=== PATIENT | female | born 1960 | race Caucasian/White ===

== ENCOUNTER 2016-06-07 21:39 | Emergency (ER) | payer MEDICAID ==
[~2016-06-07] VITALS: Ht 160 cm; Wt 88.9 kg
[~2016-06-07 21:39] MED LIST: CEPH-570 PO; CITA20TA19 PO; HYDR25TA4 PO; OMEP20TA68 PO; OXYC-128 PO; ROPI1TAB2 PO
[2016-06-07] MEDS ORDERED: ONDANSETRON HCL/PF 4 MG/2 ML VIAL ONE (22:28)
[2016-06-07] MEDS ORDERED: MORPHINE SULFATE INJ 4 MG/ML DISP.SYRIN ONE (22:28)
[2016-06-07] MEDS ORDERED: IV SET PRIMARY 1 EA INFUS.SET MC ONE (22:28)
[2016-06-07] MEDS ORDERED: IV NS 0.9% 500 ML IV ONE (22:28)
[2016-06-07] MEDS ORDERED: IV NS 0.9% 500 ML BAG IV ONE (22:30)
[2016-06-07] MEDS ORDERED: ONDANSETRON HCL/PF 4 MG/2 ML VIAL IVP ONE (22:30)
[2016-06-07] MEDS ORDERED: MORPHINE SULFATE INJ 2 MG/ML DISP.SYRIN IV ONE (22:30)
[2016-06-07 22:48] LABS: BASOPHILS % (AUTO) 0.6 % (0.0-2.0); DIFF TOTAL % 100 %; EOSINOPHILS # (AUTO) 0.1 /CMM (0.0-0.7); EOSINOPHILS % (AUTO) 1.7 % (0.0-6.0); HEMATOCRIT 41 % (33-45); HEMOGLOBIN 13.5 g/dL (11.5-14.8); LYMPHOCYTES # (AUTO) 1.4 /CMM (0.8-4.8); LYMPHOCYTES % (AUTO) 29.9 % (20.0-44.0); MEAN CORPUSCULAR HEMOGLOBIN 31 PG (26.0-33.0); MEAN CORPUSCULAR HGB CONC 33 g/dl (31.0-36.0); MEAN CORPUSCULAR VOLUME 94 fL (82-100); MONOCYTES # (AUTO) 0.5 /CMM (0.1-1.30); NEUTROPHILS # (AUTO) 2.6 /CMM (1.8-8.9); NEUTROPHILS % (AUTO) 57.8 % (43.0-81.0); PLATELET COUNT (AUTO) 218 /CMM (150-450); RED BLOOD CELL COUNT(AUTO) 4.32 MIL/uL (4.0-5.2); WHITE BLOOD COUNT (AUTO) 4.6 K/uL (4.3-11.0)
[2016-06-07 22:52] LABS: KETONES,URINE NEGATIVE (NEGATIVE); LEUKOCYTE ESTERASE ,URINE 1+ (NEGATIVE)
[2016-06-07 22:55] LABS: PREGNANCY TEST URINE QUAL NEGATIVE (NEGATIVE)
[2016-06-07] MEDS ORDERED: diphenhydrAMINE HCL 50 MG/ML VIAL ONE (22:58)
[2016-06-07 23:00] LABS: CALCIUM, SERUM 8.2 mg/dL (8.5-10.1); CREATININE 0.9 mg/dL (0.6-1.3); POTASSIUM 4.1 mmol/L (3.5-5.1)
[2016-06-07 23:00] LABS: ADD UA MICROSCOPIC YES
[2016-06-07] MEDS ORDERED: diphenhydrAMINE HCL 50 MG/ML VIAL IV ONE (23:00)
[2016-06-07 23:05] LABS: INR 0.96 (0.87-1.13); PROTHROMBIN TIME 10.4 SECS (9.5-12.7)
[2016-06-07 23:06] LABS: ALBUMIN 3.4 g/dL (3.4-5.0); BILIRUBIN,DIRECT 0.1 mg/dL (0.0-0.2); BILIRUBIN,TOTAL 0.4 mg/dL (0.2-1.0); INDIRECT BILIRUBIN 0.3 mg/dL (0.0-1.1); TOTAL PROTEIN, SERUM 6.5 g/dL (6.4-8.2)
[2016-06-07] MEDS ORDERED: IV NS 0.9% 250 ML IV ONE (23:06)
[2016-06-07] MEDS ORDERED: IOHEXOL-350 100 ML VIAL IV ONE (23:07)
[2016-06-07] MEDS ORDERED: CT SWABBABLE VALVE TRANS SET 1 EA INFUS.SET MC ONE (23:07)
[2016-06-07 23:14] LABS: ADD URINE CULTURE YES; RBC,URINE NONE SEEN /HPF (0-2); WBC,URINE 0-2 /HPF (0-3)
[2016-06-08] MEDS ORDERED: MORPHINE SULFATE INJ 2 MG/ML DISP.SYRIN IV ONE (02:00)
[2016-06-08 02:35] VITALS: BP 155/84
== END 2016-06-08 02:36 | disposition home or self-care (01) ==
LOC: ER 21:39
DX: J18.9 Pneumonia, unspecified organism (principal); I10 Essential (primary) hypertension; F32.9 Major depressive disorder, single episode, unspecified; C50.911 Malignant neoplasm of unspecified site of right female breast; Z90.710 Acquired absence of both cervix and uterus; Z90.89 Acquired absence of other organs; Z90.49 Acquired absence of other specified parts of digestive tract; Z90.11 Acquired absence of right breast and nipple; Z98.890 Other specified postprocedural states; Z88.6 Allergy status to analgesic agent
CPT/HCPCS: 36415; 71010; 71275; 74176; 80048; 80076; 81001; 83690; 84484; 84703; 85025; 85730; 87086; 93005; 96361; 96374; 96375; 99285; A4606; J1200; J2270; J2405; J7040; J7050; Q9967; Z7610; 81000-TC

== ENCOUNTER 2016-06-09 10:23 | Emergency (ER) | payer MEDICAID ==
[~2016-06-09] VITALS: Ht 160 cm; Wt 90.7 kg
[2016-06-09 10:46] LABS: BASOPHILS % (AUTO) 0.6 % (0.0-2.0); DIFF TOTAL % 100 %; EOSINOPHILS # (AUTO) 0.1 /CMM (0.0-0.7); HEMATOCRIT 45 % (33-45); HEMOGLOBIN 15.3 g/dL (11.5-14.8); LYMPHOCYTES % (AUTO) 32.8 % (20.0-44.0); MEAN CORPUSCULAR HEMOGLOBIN 31 PG (26.0-33.0); MEAN CORPUSCULAR HGB CONC 34 g/dl (31.0-36.0); MEAN CORPUSCULAR VOLUME 93 fL (82-100); MONOCYTES # (AUTO) 0.3 /CMM (0.1-1.30); MONOCYTES % (AUTO) 5.1 % (2.0-12.0); NEUTROPHILS # (AUTO) 3.8 /CMM (1.8-8.9); NEUTROPHILS % (AUTO) 60.5 % (43.0-81.0); PLATELET COUNT (AUTO) 234 /CMM (150-450); RED BLOOD CELL COUNT(AUTO) 4.88 MIL/uL (4.0-5.2); WHITE BLOOD COUNT (AUTO) 6.2 K/uL (4.3-11.0)
[2016-06-09 11:01] LABS: INR 0.99 (0.87-1.13); PROTHROMBIN TIME 10.4 SECS (9.5-12.7)
[2016-06-09 11:02] LABS: ANION GAP 15 (5-14); CALCIUM, SERUM 9.1 mg/dL (8.5-10.1); CARBON DIOXIDE 25 mmol/L (21-32); CHLORIDE 104 mmol/L (98-107); CREATININE 1.2 mg/dL (0.6-1.3); GFR 46 mL/min (>60); GLUCOSE 122 mg/dL (74-106); POTASSIUM 3.7 mmol/L (3.5-5.1); SODIUM SERUM 140 mmol/L (136-145); UREA NITROGEN, BLOOD 12 mg/dL (7-18)
[2016-06-09 11:10] LABS: TROPONIN I < 0.017 ng/mL (0.00-0.056)
[2016-06-09] MEDS ORDERED: FENTANYL PF 100MCG/2ML AMPUL ONE (11:30)
[2016-06-09] MEDS ORDERED: FENTANYL PF 100MCG/2ML AMPUL IV ONE (11:30)
[2016-06-09 12:26] VITALS: BP 119/81
== END 2016-06-09 12:26 | disposition home or self-care (01) ==
LOC: ER 10:26
DX: J18.9 Pneumonia, unspecified organism (principal); M54.9 Dorsalgia, unspecified; I10 Essential (primary) hypertension; F32.9 Major depressive disorder, single episode, unspecified; C50.911 Malignant neoplasm of unspecified site of right female breast; Z90.89 Acquired absence of other organs; Z90.49 Acquired absence of other specified parts of digestive tract; Z90.11 Acquired absence of right breast and nipple; Z88.6 Allergy status to analgesic agent
CPT/HCPCS: 36415; 71010; 80048; 83880; 84484; 85025; 85730; 93005; 96374; 99285; A4606; J3010; Z7610

== ENCOUNTER 2016-06-16 21:44 | Emergency (ER) | payer MEDICAID ==
[~2016-06-16] VITALS: Ht 160 cm; Wt 88.9 kg
[2016-06-16] MEDS ORDERED: ONDANSETRON HCL/PF 4 MG/2 ML VIAL ONE (23:27)
[2016-06-16] MEDS ORDERED: HYDROMORPHONE 1 MG/1 ML DISP.SYRIN ONE (23:27)
[2016-06-16] MEDS ORDERED: MORPHINE SULFATE INJ 4 MG/ML DISP.SYRIN ONE (23:43)
[2016-06-16 23:51] LABS: BASOPHILS % (AUTO) 0.2 % (0.0-2.0); DIFF TOTAL % 100 %; EOSINOPHILS # (AUTO) 0.1 /CMM (0.0-0.7); EOSINOPHILS % (AUTO) 1.2 % (0.0-6.0); HEMATOCRIT 44 % (33-45); HEMOGLOBIN 14.2 g/dL (11.5-14.8); LYMPHOCYTES % (AUTO) 29.8 % (20.0-44.0); MEAN CORPUSCULAR HEMOGLOBIN 30 PG (26.0-33.0); MEAN CORPUSCULAR HGB CONC 33 g/dl (31.0-36.0); MEAN CORPUSCULAR VOLUME 94 fL (82-100); MONOCYTES # (AUTO) 0.3 /CMM (0.1-1.30); MONOCYTES % (AUTO) 4.9 % (2.0-12.0); NEUTROPHILS # (AUTO) 4.2 /CMM (1.8-8.9); NEUTROPHILS % (AUTO) 63.9 % (43.0-81.0); PLATELET COUNT (AUTO) 254 /CMM (150-450); RED BLOOD CELL COUNT(AUTO) 4.67 MIL/uL (4.0-5.2); WHITE BLOOD COUNT (AUTO) 6.6 K/uL (4.3-11.0)
[2016-06-16 23:52] LABS: KETONES,URINE TRACE (NEGATIVE); LEUKOCYTE ESTERASE ,URINE 2+ (NEGATIVE)
[2016-06-16 23:57] LABS: ADD UA MICROSCOPIC YES
[2016-06-16 23:58] LABS: CALCIUM, SERUM 8.6 mg/dL (8.5-10.1); CREATININE 1.1 mg/dL (0.6-1.3); POTASSIUM 4.5 mmol/L (3.5-5.1)
[2016-06-17] MEDS ORDERED: MORPHINE SULFATE INJ 2 MG/ML DISP.SYRIN IV ONE
[2016-06-17 00:02] LABS: INR 0.94 (0.87-1.13); PROTHROMBIN TIME 10.2 SECS (9.5-12.7)
[2016-06-17 00:03] LABS: ADD URINE CULTURE YES; RBC,URINE 0-2 /HPF (0-2); WBC,URINE 21-50 /HPF (0-3)
[2016-06-17 00:06] LABS: ALBUMIN 3.6 g/dL (3.4-5.0); BILIRUBIN,DIRECT 0.1 mg/dL (0.0-0.2); BILIRUBIN,TOTAL 0.4 mg/dL (0.2-1.0); INDIRECT BILIRUBIN 0.3 mg/dL (0.0-1.1); TOTAL PROTEIN, SERUM 6.9 g/dL (6.4-8.2)
[2016-06-17] MEDS ORDERED: IOHEXOL-300 100 ML VIAL IV ONE (00:17)
[2016-06-17] MEDS ORDERED: IV NS 0.9% 250 ML IV ONE (00:17)
[2016-06-17] MEDS ORDERED: CT SWABBABLE VALVE TRANS SET 1 EA INFUS.SET MC ONE (00:17)
[2016-06-17] MEDS ORDERED: IV NS 0.9% 1,000 ML BAG IV ONE (00:30)
[2016-06-17] MEDS ORDERED: ONDANSETRON HCL/PF 4 MG/2 ML VIAL ONE (01:13)
[2016-06-17] MEDS ORDERED: IV NS 0.9% 1,000 ML ONE (01:14)
[2016-06-17] MEDS ORDERED: IV SET PRIMARY 1 EA INFUS.SET MC ONE (01:14)
[2016-06-17] MEDS ORDERED: ONDANSETRON HCL/PF 4 MG/2 ML VIAL IV ONE ×2 (01:30)
[2016-06-17 01:58] VITALS: BP 132/62
== END 2016-06-17 01:58 | disposition home or self-care (01) ==
LOC: ER 21:45
DX: R10.11 Right upper quadrant pain (principal); K76.0 Fatty (change of) liver, not elsewhere classified; F32.9 Major depressive disorder, single episode, unspecified; I10 Essential (primary) hypertension; Z85.3 Personal history of malignant neoplasm of breast; Z90.49 Acquired absence of other specified parts of digestive tract; Z88.6 Allergy status to analgesic agent
CPT/HCPCS: 36415; 74160; 80048; 80076; 81001; 83690; 85025; 85730; 87077; 87086; 87186; 96361; 96374; 96375; 96376; 99285; A4606; J2270; J2405 ×2; J7030; J7050; Q9967; Z7610; 81000-TC; J1170

== ENCOUNTER 2016-06-22 14:28 | Emergency (ER) | payer MEDICAID ==
[~2016-06-22] VITALS: Ht 160 cm; Wt 88.9 kg
[2016-06-22] MEDS ORDERED: ONDANSETRON HCL/PF 4 MG/2 ML VIAL IV ONE (15:30)
[2016-06-22] MEDS ORDERED: IV NS 0.9% 1,000 ML BAG IV ONE (15:30)
[2016-06-22] MEDS ORDERED: FENTANYL PF 100MCG/2ML AMPUL IV ONE (15:30)
[2016-06-22] MEDS ORDERED: IV NS 0.9% 1,000 ML ONE (15:34)
[2016-06-22] MEDS ORDERED: FENTANYL PF 100MCG/2ML AMPUL ONE (15:34)
[2016-06-22] MEDS ORDERED: ONDANSETRON HCL/PF 4 MG/2 ML VIAL ONE (15:34)
[2016-06-22] MEDS ORDERED: IV SET PRIMARY 1 EA INFUS.SET MC ONE (15:34)
[2016-06-22 15:36] LABS: BASOPHILS % (AUTO) 0.4 % (0.0-2.0); DIFF TOTAL % 100 %; EOSINOPHILS # (AUTO) 0.1 /CMM (0.0-0.7); EOSINOPHILS % (AUTO) 0.6 % (0.0-6.0); HEMATOCRIT 47 % (33-45); HEMOGLOBIN 15.7 g/dL (11.5-14.8); LYMPHOCYTES # (AUTO) 1.3 /CMM (0.8-4.8); LYMPHOCYTES % (AUTO) 12.6 % (20.0-44.0); MEAN CORPUSCULAR HEMOGLOBIN 31 PG (26.0-33.0); MEAN CORPUSCULAR HGB CONC 33 g/dl (31.0-36.0); MEAN CORPUSCULAR VOLUME 93 fL (82-100); MONOCYTES # (AUTO) 0.4 /CMM (0.1-1.30); MONOCYTES % (AUTO) 3.9 % (2.0-12.0); NEUTROPHILS # (AUTO) 8.5 /CMM (1.8-8.9); NEUTROPHILS % (AUTO) 82.5 % (43.0-81.0); PLATELET COUNT (AUTO) 228 /CMM (150-450); RED BLOOD CELL COUNT(AUTO) 5.04 MIL/uL (4.0-5.2); WHITE BLOOD COUNT (AUTO) 10.3 K/uL (4.3-11.0)
[2016-06-22 15:38] LABS: CALCIUM, SERUM 9.5 mg/dL (8.5-10.1); CREATININE 1.1 mg/dL (0.6-1.3); POTASSIUM 3.9 mmol/L (3.5-5.1)
[2016-06-22 15:44] LABS: ALBUMIN 4.3 g/dL (3.4-5.0); BILIRUBIN,DIRECT 0.2 mg/dL (0.0-0.2); BILIRUBIN,TOTAL 1.5 mg/dL (0.2-1.0); INDIRECT BILIRUBIN 1.3 mg/dL (0.0-1.1); TOTAL PROTEIN, SERUM 7.8 g/dL (6.4-8.2)
[2016-06-22] MEDS ORDERED: MORPHINE SULFATE INJ 4 MG/ML DISP.SYRIN ONE (16:31)
[2016-06-22] MEDS ORDERED: LACTULOSE 10 G/15 ML UDC (PYXIS) ONE (16:57)
[2016-06-22] MEDS ORDERED: NA PHOS,M-B/NA PHOS,DI-BA 1 EA ENEMA RC ONE ×2 (16:58→17:00)
[2016-06-22] MEDS ORDERED: LACTULOSE 10 G/15 ML UDC (PYXIS) PO ONE (17:00)
[2016-06-22] MEDS ORDERED: MORPHINE SULFATE INJ 2 MG/ML DISP.SYRIN IV ONE (17:00)
[2016-06-22 18:15] VITALS: BP 132/81
== END 2016-06-22 18:15 | disposition home or self-care (01) ==
LOC: ER 14:30
DX: K59.00 Constipation, unspecified (principal); F32.9 Major depressive disorder, single episode, unspecified; I10 Essential (primary) hypertension; Z85.3 Personal history of malignant neoplasm of breast; Z90.710 Acquired absence of both cervix and uterus; Z88.5 Allergy status to narcotic agent; Z90.89 Acquired absence of other organs
CPT/HCPCS: 36415; 74176; 80048; 80076; 83690; 85025; 96361; 96374; 96375; 99285; A4606; J2270; J2405; J3010; J7030; Z7610

== ENCOUNTER 2017-02-08 22:21 | Emergency (ER) | payer MEDICAID ==
[~2017-02-08] VITALS: Ht 160 cm; Wt 88.9 kg
[2017-02-08 22:21] VITALS: BP 137/90
--- NOTE | 2017-02-08 22:25 | NUR ---
AAOX3, BIB C/O SEVERE LOWER BACK PAIN RADIATES TO BILATERAL LOWER EXTREMITIES. NO RECENT FALL OR INJURY REPORTED. PATIENT IS ON PAIN MANAGEMENT AND HAD EPIDURAL INJECTION THIS AM. RESP IS EVEN AND UNLABORED WITH NAD NOTED. SKIN IS WARM AND DRY. AWAITING MD FOR EVAL.
[2017-02-08] MEDS ORDERED: ONDANSETRON 4 MG TAB.RAPDIS ONE (22:57)
[2017-02-08] MEDS ORDERED: MORPHINE SULFATE INJ 10 MG/ML DISP.SYRIN ONE (22:57)
[2017-02-08] MEDS ORDERED: METOCLOPRAMIDE HCL 10 MG/2 ML VIAL ONE (22:58)
[2017-02-08] MEDS ORDERED: MORPHINE SULFATE INJ 2 MG/ML DISP.SYRIN IM ONE (23:00)
[2017-02-08] MEDS ORDERED: METOCLOPRAMIDE HCL 10 MG/2 ML VIAL IM ONE (23:00)
[2017-02-08] MEDS ORDERED: ONDANSETRON HCL/PF 4 MG/2 ML VIAL ONE (23:42)
[2017-02-08] MEDS ORDERED: MORPHINE SULFATE INJ 4 MG/ML DISP.SYRIN ONE (23:43)
[2017-02-09] MEDS ORDERED: ONDANSETRON HCL/PF 4 MG/2 ML VIAL IV ONE
[2017-02-09] MEDS ORDERED: MORPHINE SULFATE INJ 2 MG/ML DISP.SYRIN IV ONE
[2017-02-09 00:12] LABS: HEMATOCRIT 43 % (33-45); HEMOGLOBIN 14.4 g/dL (11.5-14.8); LYMPHOCYTES # (AUTO) 0.7 /CMM (0.8-4.8); LYMPHOCYTES % (AUTO) 8.7 % (20.0-44.0); MEAN CORPUSCULAR HEMOGLOBIN 32 PG (26.0-33.0); MEAN CORPUSCULAR HGB CONC 34 g/dl (31.0-36.0); MEAN CORPUSCULAR VOLUME 95 fL (82-100); MONOCYTES # (AUTO) 0.1 /CMM (0.1-1.30); MONOCYTES % (AUTO) 1.8 % (2.0-12.0); NEUTROPHILS # (AUTO) 7.3 /CMM (1.8-8.9); NEUTROPHILS % (AUTO) 89.5 % (43.0-81.0); PLATELET COUNT (AUTO) 250 /CMM (150-450); RDW COEFFICIENT OF VARIATION 14.1 (11.5-15.0); RED BLOOD CELL COUNT(AUTO) 4.53 MIL/uL (4.0-5.2); WHITE BLOOD COUNT (AUTO) 8.1 K/uL (4.3-11.0)
[2017-02-09 00:22] LABS: CALCIUM, SERUM 8.8 mg/dL (8.5-10.1)
[2017-02-09] MEDS ORDERED: IV NS 0.9% 250 ML IV ONE (00:32)
[2017-02-09] MEDS ORDERED: IOHEXOL-300 100 ML VIAL IV ONE (00:32)
== END 2017-02-09 01:47 | disposition home or self-care (01) ==
LOC: ER 22:25
DX: M54.5 Low back pain (principal); F32.9 Major depressive disorder, single episode, unspecified; I10 Essential (primary) hypertension; G89.4 Chronic pain syndrome; Z85.3 Personal history of malignant neoplasm of breast; Z90.710 Acquired absence of both cervix and uterus; Z90.89 Acquired absence of other organs; Z88.6 Allergy status to analgesic agent
CPT/HCPCS: 36415; 72132; 80048; 85025; 96372 ×2; 96374; 96375; 99285; A4606; J2270 ×2; J2405; J2765; J7050; Q0162; Q9967; Z7610

== ENCOUNTER 2017-02-25 18:16 | Emergency (ER) | payer MEDICAID ==
[~2017-02-25] VITALS: Ht 160 cm; Wt 88.9 kg
--- NOTE | 2017-02-25 18:38 | NUR ---
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 PLACED ON MONITOR. AWAITING MD ORDER
[2017-02-25] MEDS ORDERED: IV NS 0.9% 1,000 ML BAG IV ONE (19:00)
[2017-02-25] MEDS ORDERED: ONDANSETRON HCL/PF 4 MG/2 ML VIAL IVP ONE (19:00)
[2017-02-25] MEDS ORDERED: MORPHINE SULFATE INJ 2 MG/ML DISP.SYRIN IV ONE ×2 (19:00→21:30)
--- NOTE | 2017-02-25 19:00 | NUR ---
REPORT RECEIVED FROM CAS BELTRAN FOR MELIA.
--- NOTE | 2017-02-25 19:08 | NUR ---
RAC #20 IV ACCESS. BLOOD SAMPLE COLLECTED SENT TO LAB
[2017-02-25 19:09] LABS: BASOPHILS # (AUTO) 0.1 /CMM (0.0-0.2); BASOPHILS % (AUTO) 2.2 % (0.0-2.0); EOSINOPHILS # (AUTO) 0.1 /CMM (0.0-0.7); EOSINOPHILS % (AUTO) 2.2 % (0.0-6.0); HEMATOCRIT 40 % (33-45); HEMOGLOBIN 13.7 g/dL (11.5-14.8); LYMPHOCYTES # (AUTO) 1.7 /CMM (0.8-4.8); LYMPHOCYTES % (AUTO) 30.2 % (20.0-44.0); MEAN CORPUSCULAR HEMOGLOBIN 32 PG (26.0-33.0); MEAN CORPUSCULAR HGB CONC 34 g/dl (31.0-36.0); MEAN CORPUSCULAR VOLUME 94 fL (82-100); MONOCYTES # (AUTO) 0.3 /CMM (0.1-1.30); MONOCYTES % (AUTO) 5.9 % (2.0-12.0); NEUTROPHILS # (AUTO) 3.4 /CMM (1.8-8.9); NEUTROPHILS % (AUTO) 59.5 % (43.0-81.0); PLATELET COUNT (AUTO) 238 /CMM (150-450); RDW COEFFICIENT OF VARIATION 13.2 (11.5-15.0); RED BLOOD CELL COUNT(AUTO) 4.28 MIL/uL (4.0-5.2); WHITE BLOOD COUNT (AUTO) 5.6 K/uL (4.3-11.0)
--- NOTE | 2017-02-25 19:10 | NUR ---
PT RESTING QUIETLY. VSS/RESP EVEN AND UNLABORED/NAD NOTED.
[2017-02-25 19:20] LABS: CALCIUM, SERUM 9.1 mg/dL (8.5-10.1); CARBON DIOXIDE 31 mmol/L (21-32); CHLORIDE 105 mmol/L (98-107); GLUCOSE 153 mg/dL (74-106); SODIUM SERUM 140 mmol/L (136-145); UREA NITROGEN, BLOOD 22 mg/dL (7-18)
[2017-02-25 19:24] LABS: INR 0.91 (0.87-1.13); PROTHROMBIN TIME 9.5 SECS (9.5-12.7)
[2017-02-25 19:26] LABS: APPEARANCE,URINE Clear (CLEAR); BILIRUBIN,URINE Negative (NEGATIVE); BLOOD, URINE Negative Ery/uL (NEGATIVE); COLOR,URINE Yellow (YELLOW); KETONES,URINE Negative (NEGATIVE); LEUKOCYTE ESTERASE ,URINE Negative (NEGATIVE); NITRITE, URINE Negative (NEGATIVE); PROTEIN,URINE Negative (NEGATIVE); UGLUCOSE Negative (NEGATIVE); UROBILINOGEN,URINE 0.2 EU/dL (0.2)
--- NOTE | 2017-02-25 19:26 | NUR ---
URINE SAMPLE COLLECTED SENT TO LAB
[2017-02-25 19:27] LABS: TROPONIN I < 0.017 ng/mL (0.00-0.056)
[2017-02-25] MEDS ORDERED: MORPHINE SULFATE INJ 10 MG/ML DISP.SYRIN ONE ×2 (19:27→22:14)
[2017-02-25] MEDS ORDERED: ONDANSETRON HCL/PF 4 MG/2 ML VIAL ONE (19:27)
--- NOTE | 2017-02-25 19:31 | NUR ---
GAVE REPORT TO NAHOMI CARDOZO
[2017-02-25 19:33] LABS: ALBUMIN 3.5 g/dL (3.4-5.0); BILIRUBIN,DIRECT 0.1 mg/dL (0.0-0.2); BILIRUBIN,TOTAL 0.4 mg/dL (0.2-1.0); TOTAL PROTEIN, SERUM 6.8 g/dL (6.4-8.2)
[2017-02-25] MEDS ORDERED: POTASSIUM CHLORIDE 20 MEQ TAB.PRT.SR PO ONE ×2 (20:00→20:37)
--- NOTE | 2017-02-25 21:15 | NUR ---
PAGED MD COYLE
--- NOTE | 2017-02-25 21:22 | NUR ---
MD COYLE ON PHONE WITH RIYA AMAYA
[2017-02-25] MEDS ORDERED: ASPIRIN 325 MG TABLET PO ONE (21:30)
--- NOTE | 2017-02-25 21:56 | NUR ---
spoke to [facility] wrapper caser fawad info provided as requested.
[2017-02-25] MEDS ORDERED: ASPIRIN 325 MG TABLET ONE (22:14)
--- NOTE | 2017-02-25 22:21 | NUR ---
MEDICATED PER MD ORDERS.
--- NOTE | 2017-02-25 22:24 | NUR ---
er talking to [facility] .
--- NOTE | 2017-02-25 23:08 | NUR ---
ROOM 211-A [phone] ETA [address] [id number] [facility] ALVINA ABEL
--- NOTE | 2017-02-25 23:35 | NUR ---
REPORT CALLED TO [facility] TELEMETRY DEPARTMENT CAS MOON. AWAITING TRANSPORT.
[2017-02-26 00:11] VITALS: BP 109/62
--- NOTE | 2017-02-26 00:11 | NUR ---
PT ASLEEP, NO ACUTE DISTRESS NOTED, RESP EVEN AND UNLABORED. CALL LIGHT WITHIN REACH. WILL CONTINUE TO MONITOR PT CLOSELY. AWAITING TRANSPORT.
--- NOTE | 2017-02-26 00:18 | NUR ---
REPORT GIVEN TO EMT, PT BEING TRANS TO [facility]. VSS/NAD NOTED.
== END 2017-02-26 00:32 | disposition short-term general hospital (02) ==
LOC: ER 18:19
DX: R07.9 Chest pain, unspecified (principal); E87.6 Hypokalemia; R79.89 Other specified abnormal findings of blood chemistry; F32.9 Major depressive disorder, single episode, unspecified; I10 Essential (primary) hypertension; E11.9 Type 2 diabetes mellitus without complications; Z90.710 Acquired absence of both cervix and uterus; Z90.89 Acquired absence of other organs; Z85.3 Personal history of malignant neoplasm of breast; Z90.49 Acquired absence of other specified parts of digestive tract; Z90.11 Acquired absence of right breast and nipple; Z88.6 Allergy status to analgesic agent; Z98.890 Other specified postprocedural states
CPT/HCPCS: 36415; 71010; 80048; 80076; 81001; 83690; 84484; 85025; 85378; 85730; 93005; 96361; 96374; 96375; 96376; 99285; A4606; J2270 ×2; J2405; J7030; Z7610; 81000-TC

== ENCOUNTER 2017-04-12 19:10 | Emergency (ER) | payer MEDICAID ==
[~2017-04-12] VITALS: Ht 160 cm; Wt 88.9 kg
--- NOTE | 2017-04-12 19:37 | NUR ---
PATIENT CAME IN WITH THE COMPLAINT OF ABD PAIN WITH REBOUND TENDERNESS.PAIN 9/10.PLACED ON MONITOR.AWAITING FOR EVAL BY .URINE COLLECTED AND SENT.
--- NOTE | 2017-04-12 19:52 | NUR ---
PATIENT COMPLAINTS OF BURNING MID STERNAL CHEST PAIN 6/10
[2017-04-12 19:57] LABS: APPEARANCE,URINE Clear (CLEAR); BILIRUBIN,URINE Negative (NEGATIVE); BLOOD, URINE Negative Ery/uL (NEGATIVE); COLOR,URINE Yellow (YELLOW); KETONES,URINE Negative (NEGATIVE); LEUKOCYTE ESTERASE ,URINE Negative (NEGATIVE); NITRITE, URINE Negative (NEGATIVE); PH,URINE 5.5 (5.0-8.0); PROTEIN,URINE Negative (NEGATIVE); UGLUCOSE Negative (NEGATIVE); UROBILINOGEN,URINE 0.2 EU/dL (0.2)
[2017-04-12] MEDS ORDERED: ONDANSETRON HCL/PF 4 MG/2 ML VIAL IVP ONE (20:00)
[2017-04-12] MEDS ORDERED: IV NS 0.9% 1,000 ML BAG IV ONE (20:00)
[2017-04-12] MEDS ORDERED: MORPHINE SULFATE INJ 2 MG/ML DISP.SYRIN IV ONE (20:00)
[2017-04-12] MEDS ORDERED: ONDANSETRON HCL/PF 4 MG/2 ML VIAL ONE (20:04)
[2017-04-12] MEDS ORDERED: MORPHINE SULFATE INJ 4 MG/ML DISP.SYRIN ONE (20:05)
[2017-04-12] MEDS ORDERED: MORPHINE SULFATE INJ 2 MG/ML DISP.SYRIN ONE (20:05)
[2017-04-12 20:10] LABS: BASOPHILS % (AUTO) 0.4 % (0.0-2.0); EOSINOPHILS # (AUTO) 0.1 /CMM (0.0-0.7); EOSINOPHILS % (AUTO) 1.5 % (0.0-6.0); HEMATOCRIT 42 % (33-45); LYMPHOCYTES # (AUTO) 1.7 /CMM (0.8-4.8); LYMPHOCYTES % (AUTO) 30.4 % (20.0-44.0); MEAN CORPUSCULAR HEMOGLOBIN 31 PG (26.0-33.0); MEAN CORPUSCULAR HGB CONC 33 g/dl (31.0-36.0); MEAN CORPUSCULAR VOLUME 94 fL (82-100); MONOCYTES # (AUTO) 0.4 /CMM (0.1-1.30); MONOCYTES % (AUTO) 7.7 % (2.0-12.0); NEUTROPHILS # (AUTO) 3.4 /CMM (1.8-8.9); PLATELET COUNT (AUTO) 211 /CMM (150-450); RDW COEFFICIENT OF VARIATION 13.9 (11.5-15.0); RED BLOOD CELL COUNT(AUTO) 4.48 MIL/uL (4.0-5.2); WHITE BLOOD COUNT (AUTO) 5.6 K/uL (4.3-11.0)
[2017-04-12 20:17] LABS: CALCIUM, SERUM 9.2 mg/dL (8.5-10.1); POTASSIUM 4.2 mmol/L (3.5-5.1)
[2017-04-12] MEDS ORDERED: IOHEXOL-300 100 ML VIAL IV ONE (20:18)
[2017-04-12 20:23] LABS: ALBUMIN 3.7 g/dL (3.4-5.0); BILIRUBIN,TOTAL 0.3 mg/dL (0.2-1.0)
--- NOTE | 2017-04-12 20:30 | NUR ---
PATIENT PUT ON O2 2L NC.PATIENT LEFT TO CT BY WC.
--- NOTE | 2017-04-12 20:48 | NUR ---
MD NOTIFIED PAIN NOT IMPROVED.AWAITING FOR ORDERS.
[2017-04-12] MEDS ORDERED: METOCLOPRAMIDE HCL 10 MG/2 ML VIAL ONE (21:24)
[2017-04-12] MEDS ORDERED: METOCLOPRAMIDE HCL 10 MG/2 ML VIAL IV ONE (21:30)
--- NOTE | 2017-04-12 21:57 | NUR ---
IV removed. Catheter intact and site benign. Pressure and 4x4 applied to site. No bleeding noted. Patient discharged to home in stable condition. Written and verbal after care instructions given. Patient verbalizes understanding of instruction and RX.Ambulated with not using cane with steady gait.VSS.
[2017-04-12 21:59] VITALS: BP 119/51
== END 2017-04-12 22:02 | disposition home or self-care (01) ==
LOC: ER 19:15
DX: R10.31 Right lower quadrant pain (principal); I10 Essential (primary) hypertension; F32.9 Major depressive disorder, single episode, unspecified; M79.7 Fibromyalgia; M19.90 Unspecified osteoarthritis, unspecified site; Z85.3 Personal history of malignant neoplasm of breast; Z90.710 Acquired absence of both cervix and uterus; Z90.49 Acquired absence of other specified parts of digestive tract; Z88.5 Allergy status to narcotic agent
CPT/HCPCS: 36415; 71010; 74160; 80048; 80076; 81001; 83690; 85025; 96361; 96374; 96375; 99285; A4606; J2270 ×2; J2405; J2765; J7030; Q9967; Z7610; 81000-TC

== ENCOUNTER 2017-07-01 19:45 | Inpatient (IN) | payer MEDICAID ==
[~2017-07-01] VITALS: Ht 160 cm; Wt 91.6 kg
[~2017-07-01 19:45] MED LIST changes: +OMEP20TA5 PO; -OMEP20TA68 PO
--- NOTE | 2017-07-01 20:10 | NUR ---
PT BIBRA FOR LEFT CHEST PAIN GOING DOWN LEFT SHOULDER PAIN, STABBING LIKE X 2 DAYS. PT AOX3 RR EVEN AND UNLABORED. NO SOB NOTED. NAD NOTED. NO NVD AT THIS TIME. PT GOWNED AND PLACED ON MONITOR. PT NOT DIAPHORETIC. DR. STUART AT BEDSIDE FOR EVAL.
[2017-07-01] MEDS ORDERED: ASPIRIN 325 MG TABLET ONE (20:24)
[2017-07-01] MEDS ORDERED: NITROGLYCERIN 0.4 MG/TAB BOTTLE ONE (20:24)
[2017-07-01] MEDS ORDERED: NITROGLYCERIN 0.4 MG/TAB BOTTLE SL ONE (20:30)
[2017-07-01] MEDS ORDERED: ASPIRIN 325 MG TABLET PO ONE (20:30)
--- NOTE | 2017-07-01 20:33 | NUR ---
LAB AT BEDSIDE FOR BLOOD DRAW
--- NOTE | 2017-07-01 20:33 | NUR ---
2ND TAB SL NITRO GIVEN FOR CP.
--- NOTE | 2017-07-01 20:38 | NUR ---
3RD TAB SL NITRO GIVEN FOR CP.
[2017-07-01 20:43] LABS: BASOPHILS # (AUTO) 0.1 /CMM (0.0-0.2); BASOPHILS % (AUTO) 1.3 % (0.0-2.0); EOSINOPHILS # (AUTO) 0.3 /CMM (0.0-0.7); HEMATOCRIT 39 % (33-45); HEMOGLOBIN 13.4 g/dL (11.5-14.8); LYMPHOCYTES % (AUTO) 29.2 % (20.0-44.0); MEAN CORPUSCULAR HEMOGLOBIN 32 PG (26.0-33.0); MEAN CORPUSCULAR HGB CONC 34 g/dl (31.0-36.0); MEAN CORPUSCULAR VOLUME 93 fL (82-100); MONOCYTES # (AUTO) 0.5 /CMM (0.1-1.30); MONOCYTES % (AUTO) 6.5 % (2.0-12.0); NEUTROPHILS # (AUTO) 4.1 /CMM (1.8-8.9); PLATELET COUNT (AUTO) 205 /CMM (150-450); RDW COEFFICIENT OF VARIATION 13.4 (11.5-15.0); RED BLOOD CELL COUNT(AUTO) 4.22 MIL/uL (4.0-5.2)
--- NOTE | 2017-07-01 20:49 | NUR ---
AT BEDSIDE. PT DENIES CP AT THIS TIME.
[2017-07-01 20:52] LABS: CALCIUM, SERUM 8.9 mg/dL (8.5-10.1); CARBON DIOXIDE 28 mmol/L (21-32); CHLORIDE 108 mmol/L (98-107); CREATININE 0.9 mg/dL (0.6-1.3); GLUCOSE 130 mg/dL (74-106); POTASSIUM 3.3 mmol/L (3.5-5.1); SODIUM SERUM 142 mmol/L (136-145); UREA NITROGEN, BLOOD 13 mg/dL (7-18)
[2017-07-01 20:55] LABS: INR 0.93 (0.85-1.15)
[2017-07-01] MEDS ORDERED: ONDANSETRON HCL/PF - ER 4 MG/2 ML VIAL IV ONE (21:00)
[2017-07-01] MEDS ORDERED: POTASSIUM CHLORIDE 20 MEQ TAB.PRT.SR PO ONE ×2 (21:00→21:09)
[2017-07-01] MEDS ORDERED: MORPHINE SULFATE INJ 4 MG/ML DISP.SYRIN ONE (21:00)
[2017-07-01] MEDS ORDERED: NITROGLYCERIN PACKET 1 GM PACKET TOP ONE (21:00)
[2017-07-01] MEDS ORDERED: MORPHINE SULFATE INJ 2 MG/ML DISP.SYRIN IV ONE (21:00)
[2017-07-01 21:01] LABS: TROPONIN I < 0.017 ng/mL (0.00-0.056)
--- NOTE | 2017-07-01 21:04 | NUR ---
CMO & PRESIDENT AT BEDSIDE
[2017-07-01] MEDS ORDERED: ONDANSETRON HCL/PF 4 MG/2 ML VIAL ONE (21:05)
[2017-07-01] MEDS ORDERED: NITROGLYCERIN PACKET 1 GM PACKET ONE (21:09)
--- NOTE | 2017-07-01 21:13 | NUR ---
RADIOLOGY AT BEDSIDE FOR CXR
--- NOTE | 2017-07-01 22:03 | NUR ---
CALLED RN SUP FOR TELE BED
--- NOTE | 2017-07-01 22:25 | NUR ---
PT ASSIGNED TO [facility] BED 116-2
--- NOTE | 2017-07-01 22:29 | NUR ---
REPORT GIVEN TO CAS WHITLEY FOR TELE BED 116-2
--- NOTE | 2017-07-01 22:44 | NUR ---
PT TRANSFERRED PER [facility]S PROTOCOL.
[2017-07-01] MEDS ORDERED: ONDANSETRON HCL/PF 4 MG/2 ML VIAL IV PRN (23:30)
[2017-07-01] MEDS ORDERED: ACETAMINOPHEN 325 MG TABLET PO PRN (23:30)
[2017-07-01] MEDS ORDERED: ropiniROLE 0.5 MG TABLET PO ONE (23:30)
--- NOTE | 2017-07-01 23:47 | NUR ---
TRACK ANNOUNCER NOTES 22:25 RECEIVED REPORT FROM ER NURSE ALLEY. 22:45 RECEIVED PATIENT FROM ER VIA RDIXIE. PATIENT ABLE TO AMBULATE WITH ASSIST FROM GURNEY TO BED. RECEIVED PATENT WITH RIGHT LEG #18 PERIPHERAL IV LINE. ALERT AND ORIENTED AND SPEAKS [place]. RECEIVED WITH NITROBID PATCH ON LEFT CHEST FOR CHEST PAIN. 23:[address] COYLE OVER THE TELEPHONE. VERIFIED XANAX ORDER. DR COYLE GAVE ORDER FOR XANAX 0.25MG PO Q6 PRN FOR ANXIETY. ALSO RELAYED TO THE DR COYLE THAT PATIENT IS ALLERGIC TO HYDROMORPHONE AND PATIENT WAS GIVEN MORPHINE IN THE ER PER ER NURSE AND HAD NO REACTION. DR COYLE ORDERED MORPHINE 2MG Q3 PRN PAIN. ORDERS NOTED AND CARRIED OUT.
[2017-07-02] MEDS ORDERED: ALPRAZOLAM 0.25 MG TABLET PO PRN
[2017-07-02] MEDS ORDERED: MORPHINE SULFATE INJ 2 MG/ML DISP.SYRIN IV PRN
[2017-07-02] MEDS ORDERED: IV PREMIX 0.45% NS + KCL 1,000 ML IV ONE (00:09)
[2017-07-02] MEDS ORDERED: MORPHINE SULFATE INJ 4 MG/ML DISP.SYRIN ONE (04:30)
--- NOTE | 2017-07-02 04:30 | NUR ---
RN NOTES MEDICATION OVERRIDE PERFORMED FOR MORPHINE 2MG. 2MG UNAVAILABLE IN [place], MS2, AND 3W. OVERRIDE FOR 4MG, EXCESS WASTED IN OMNICELL WITH NURSE WHITLEY.
--- NOTE | 2017-07-02 07:30 | NUR ---
BEAD PICKER INITIAL NOTES RECEIVED PATIENT IN BED, AOX3, [place]LANDER SPEAKING, CO OF HEADACHE WILL GIVE PRN TYLENOL, NO CO OF CHEST PAIN AT THIS TIME, ON TELE MONITOR SR 66 HR, IV ALINA MIDLINE WITH FLUIDS INFUSING CLEAN AND PATENT, BED IN LOW AND LOCKED POSITION CALL LIGHT WITHIN REACH, WILL CONTINUE TO MONITOR
[2017-07-02 08:00] VITALS: BP 104/66
[2017-07-02] MEDS ORDERED: CITALOPRAM HYDROBROMIDE 20 MG TABLET PO SCH ×2 (09:00)
[2017-07-02] MEDS ORDERED: ASPIRIN 81 MG TAB.CHEW PO SCH (09:00)
[2017-07-02] MEDS ORDERED: HYDROCHLOROTHIAZIDE 25 MG TABLET PO SCH ×2 (09:00)
--- NOTE | 2017-07-02 09:15 | NUR ---
CERTIFIED LACTATION EDUCATOR NOTES PATIENT SEEN BY DR COYLE ORDERS FOR NM STRESS TEST, CONSENT OBTAINED PATIENT TO BE NPO EXCEPT MEDICATIONS, AWAITING GAS SUBSTATION OPERATOR CONSULT.
[2017-07-02 12:00] VITALS: BP 103/63
[2017-07-02] MEDS ORDERED: AMINOPHYLLINE 500 MG/20 ML VIAL ONE (12:00)
[2017-07-02] MEDS ORDERED: REGADENOSON 0.4 MG/5 ML DISP.SYRIN IVP ONE (12:30)
--- NOTE | 2017-07-02 14:26 | NUR ---
PAIRER ODDS NOTES PATIENT TAKEN TO STRESS TEST VIA WHEELCHAIR, STABLE.
--- NOTE | 2017-07-02 15:25 | NUR ---
PRODUCTION WOOD CRAFTSMAN NOTES PATIENT RETURNED FROM STRESS TEST, ABLE TO EAT AND SECOND PART OF TEST IN ONE HOUR.
[2017-07-02 16:00] VITALS: BP 128/73
--- NOTE | 2017-07-02 18:54 | NUR ---
BILL COLLECTOR NOTES PATIENT DC ORDERS GIVEN BY DR COYLE, PATIENT [place] NEGATIVE, MIDLINE DC TIP INTACT, , NO CO OF CHEST PAIN, EXIT CARE DONE, PATIENT TEACHING DONE, CONTINUE HOME MEDICATIONS AND FOLLOW-UP WITH PRIMARY PROFESSIONAL EMPLOYER CONSULTANT, PATIENT AT BEDSIDE WILL HELP PATIENT AND TAKE HER HOME. BELONGINGS LIST SIGNED.
[2017-07-02] MEDS ORDERED: ropiniROLE 0.5 MG TABLET PO SCH ×2 (22:00)
[2017-07-03] MEDS ORDERED: PANTOPRAZOLE 40 MG TABLET.DR PO SCH (07:30)
== END 2017-07-02 19:00 | disposition home or self-care (01) | DRG 203 ==
LOC: ER 19:45 → TELE1 22:24
PROVIDERS: ADMIT Internal Medicine; ATTEND Internal Medicine
PROC: 05H633Z Insertion of Infusion Device into Left Subclavian Vein, Percutaneous Approach (ICD-10-PCS; principal; 2017-07-01)
PROC: B547ZZA Ultrasonography of Left Subclavian Vein, Guidance (ICD-10-PCS; principal; 2017-07-01)
DX: R07.89 Other chest pain (principal); F32.9 Major depressive disorder, single episode, unspecified; I10 Essential (primary) hypertension; M19.90 Unspecified osteoarthritis, unspecified site; M79.7 Fibromyalgia; Z90.710 Acquired absence of both cervix and uterus; Z86.73 Personal history of transient ischemic attack (TIA), and cerebral infarction without residual deficits; Z85.3 Personal history of malignant neoplasm of breast; Z90.11 Acquired absence of right breast and nipple; Z98.890 Other specified postprocedural states; Z90.49 Acquired absence of other specified parts of digestive tract; Z88.5 Allergy status to narcotic agent; Z79.899 Other long term (current) drug therapy
CPT/HCPCS: 36415; 71045-TC; 80048-TC; 84484-TC; 85025-TC; 85730-TC; 87081-TC; 93307-TC; A4606; A9502; J0280; J2270; J2405; J2785; J3480; J3490; Z7610

== ENCOUNTER 2017-07-09 09:24 | Emergency (ER) | payer MEDICAID ==
[~2017-07-09] VITALS: Ht 160 cm; Wt 88.9 kg
--- NOTE | 2017-07-09 09:50 | NUR ---
PRESENTS TO ER C/O COUGH SINCE LAST NIGHT, MIDSTERNAL CP WORSE WHEN SHE COUGHS. PATIENT IS A/OX 4. BREATHING EVEN AND UNLABORED. NO SOB. PATIENT WEARING HOLTER MONITOR. VITALS STABLE, NAD. SAFETY AND COMFORT MEASURES IN PLACE. MD AT BEDSIDE FOR EVAL.
--- NOTE | 2017-07-09 10:05 | NUR ---
RESEARCH PROFESSIONAL AT BEDSIDE.
--- NOTE | 2017-07-09 10:08 | NUR ---
RT CALLED FOR A BREATHNG TX
[2017-07-09] MEDS ORDERED: ALBUTEROL FS 2.5 MG/3 ML VIAL.NEB ONE (10:23)
[2017-07-09] MEDS ORDERED: IPRATROPIUM NEB FS 0.5 MG/2.5 ML AMPUL.NEB ONE (10:24)
[2017-07-09] MEDS ORDERED: IPRATROPIUM NEB FS 0.5 MG/2.5 ML AMPUL.NEB NEB ONE (10:30)
[2017-07-09] MEDS ORDERED: ALBUTEROL FS 2.5 MG/3 ML VIAL.NEB NEB ONE (10:30)
--- NOTE | 2017-07-09 10:30 | NUR ---
RT AT BEDSIDE FOR BREATHING TX.
[2017-07-09] MEDS ORDERED: KETOROLAC TROMETHAMINE INJ 30 MG/ML VIAL ONE (11:18)
[2017-07-09 11:22] VITALS: BP 128/77
--- NOTE | 2017-07-09 11:23 | NUR ---
Patient discharged to home in stable condition. Written and verbal after care instructions given. Patient verbalizes understanding of instruction. Prescription given.
[2017-07-09] MEDS ORDERED: KETOROLAC TROMETHAMINE INJ 30 MG/ML VIAL IM ONE (11:30)
[2017-07-10] MEDS ORDERED: IBUPROFEN 600 MG TABLET PO ONE (09:27)
== END 2017-07-09 11:26 | disposition home or self-care (01) ==
LOC: ER 09:25
DX: J20.9 Acute bronchitis, unspecified (principal); F32.9 Major depressive disorder, single episode, unspecified; I10 Essential (primary) hypertension; M79.7 Fibromyalgia; Z85.3 Personal history of malignant neoplasm of breast; Z88.5 Allergy status to narcotic agent; Z90.710 Acquired absence of both cervix and uterus; Z90.49 Acquired absence of other specified parts of digestive tract; Z90.89 Acquired absence of other organs; Z98.890 Other specified postprocedural states
CPT/HCPCS: 71045; 93005; 94640 ×2; 96372; 99284; A4606; J1885; Z7610

== ENCOUNTER 2017-07-09 19:54 | Emergency (ER) | payer MEDICAID ==
[~2017-07-09] VITALS: Ht 154.9 cm; Wt 104.3 kg
[2017-07-09] MEDS ORDERED: ONDANSETRON HCL/PF 4 MG/2 ML VIAL ONE (22:23)
[2017-07-09] MEDS ORDERED: MORPHINE SULFATE INJ 4 MG/ML DISP.SYRIN ONE ×2 (22:24→23:14)
[2017-07-09] MEDS ORDERED: ONDANSETRON HCL/PF 4 MG/2 ML VIAL IVP ONE (22:30)
[2017-07-09] MEDS ORDERED: IV NS 0.9% 500 ML BAG IV ONE (22:30)
[2017-07-09] MEDS ORDERED: MORPHINE SULFATE INJ 2 MG/ML DISP.SYRIN IV ONE ×2 (22:30→23:30)
[2017-07-09 23:09] LABS: BASOPHILS % (AUTO) 0.4 % (0.0-2.0); EOSINOPHILS # (AUTO) 0.2 /CMM (0.0-0.7); EOSINOPHILS % (AUTO) 3.5 % (0.0-6.0); HEMATOCRIT 37 % (33-45); HEMOGLOBIN 12.9 g/dL (11.5-14.8); LYMPHOCYTES # (AUTO) 0.7 /CMM (0.8-4.8); MEAN CORPUSCULAR HEMOGLOBIN 32 PG (26.0-33.0); MEAN CORPUSCULAR HGB CONC 35 g/dl (31.0-36.0); MEAN CORPUSCULAR VOLUME 94 fL (82-100); MONOCYTES # (AUTO) 0.2 /CMM (0.1-1.30); MONOCYTES % (AUTO) 3.8 % (2.0-12.0); NEUTROPHILS # (AUTO) 4.6 /CMM (1.8-8.9); NEUTROPHILS % (AUTO) 80.3 % (43.0-81.0); PLATELET COUNT (AUTO) 188 /CMM (150-450); RDW COEFFICIENT OF VARIATION 13.9 (11.5-15.0); RED BLOOD CELL COUNT(AUTO) 3.97 MIL/uL (4.0-5.2); WHITE BLOOD COUNT (AUTO) 5.8 K/uL (4.3-11.0)
[2017-07-09] MEDS ORDERED: IOHEXOL-300 100 ML VIAL IV ONE (23:10)
[2017-07-09] MEDS ORDERED: IV NS 0.9% 250 ML IV ONE (23:11)
[2017-07-09 23:25] LABS: INR 0.96 (0.87-1.13)
[2017-07-09 23:26] LABS: CALCIUM, SERUM 8.4 mg/dL (8.5-10.1); POTASSIUM 3.5 mmol/L (3.5-5.1)
[2017-07-09 23:31] LABS: TROPONIN I < 0.017 ng/mL (0.00-0.056)
[2017-07-09 23:40] LABS: ALBUMIN 3.2 g/dL (3.4-5.0); BILIRUBIN,TOTAL 1.1 mg/dL (0.2-1.0); TOTAL PROTEIN, SERUM 6.6 g/dL (6.4-8.2)
[2017-07-09 23:50] LABS: LIPASE 7182 U/L (73-393)
[2017-07-10] MEDS ORDERED: IV NS 0.9% 1,000 ML BAG IV ONE
[2017-07-10 01:13] LABS: APPEARANCE,URINE SL CLOUDY (CLEAR); BILIRUBIN,URINE NEGATIVE (NEGATIVE); BLOOD, URINE NEGATIVE Ery/uL (NEGATIVE); COLOR,URINE YELLOW (YELLOW); KETONES,URINE NEGATIVE (NEGATIVE); LEUKOCYTE ESTERASE ,URINE NEGATIVE (NEGATIVE); NITRITE, URINE NEGATIVE (NEGATIVE); PROTEIN,URINE NEGATIVE (NEGATIVE); UGLUCOSE NEGATIVE (NEGATIVE); UROBILINOGEN,URINE 0.2 EU/dL (0.2)
[2017-07-10] MEDS ORDERED: MORPHINE SULFATE INJ 4 MG/ML DISP.SYRIN ONE (01:19)
[2017-07-10 01:27] LABS: BACTERIA,URINE None seen /HPF (None Seen); RBC,URINE NONE SEEN /HPF (0-2); SQUAMOUS EPITHELIAL CELL,UR Moderate /HPF (None Seen); WBC,URINE 0-2 /HPF (0-3)
[2017-07-10 01:28] LABS: BILIRUBIN,DIRECT 0.2 mg/dL (0.0-0.2)
[2017-07-10] MEDS ORDERED: MORPHINE SULFATE INJ 2 MG/ML DISP.SYRIN IV ONE (01:30)
[2017-07-10] MEDS ORDERED: ACETAMINOPHEN 325 MG TABLET PO ONE (06:00)
[2017-07-10] MEDS ORDERED: ACETAMINOPHEN ES 500 MG TABLET ONE (06:13)
[2017-07-10 07:06] VITALS: BP 122/68
[2017-07-10] MEDS ORDERED: IBUPROFEN 600 MG TABLET PO ONE (10:00)
== END 2017-07-10 09:18 | disposition short-term general hospital (02) ==
LOC: ER 19:55
DX: K85.91 Acute pancreatitis with uninfected necrosis, unspecified (principal); F32.9 Major depressive disorder, single episode, unspecified; I10 Essential (primary) hypertension; J20.9 Acute bronchitis, unspecified; M79.7 Fibromyalgia; Z85.3 Personal history of malignant neoplasm of breast; Z88.5 Allergy status to narcotic agent; Z90.49 Acquired absence of other specified parts of digestive tract; Z90.710 Acquired absence of both cervix and uterus
CPT/HCPCS: 36415 ×2; 74160; 76700; 80053; 81001; 82248; 83605 ×2; 83690; 84484; 85025; 85730; 87040 ×2; 93005; 96361; 96374; 96375; 96376; 99285; A4606; J2270 ×3; J2405; J7050; Q9967; Z7610; 81000-TC

== ENCOUNTER 2017-10-16 09:16 | Emergency (ER) | payer MEDICAID, OTHER ==
[~2017-10-16] VITALS: Ht 162.6 cm; Wt 89.8 kg
--- NOTE | 2017-10-16 09:30 | NUR ---
BB C/O LEFT SIDED CHEST PAIN GOING TO LEFT SIDE OF BACK X SUNDAY. A/OX 4. BREATHING EVEN AND UNLABORED. NO SOB, NAD, VITALS STABLE. SKIN WARM AND DRY. SAFETY AND COMFORT MEASURES IN PLACE. AWAITING MD ORDERS.
[2017-10-16] MEDS ORDERED: CYCLOBENZAPRINE 10 MG TABLET PO ONE (10:00)
[2017-10-16] MEDS ORDERED: DIAZEPAM 5 MG/ML 2 ML DISP.SYRIN IV ONE (10:00)
[2017-10-16] MEDS ORDERED: CYCLOBENZAPRINE 10 MG TABLET ONE (10:01)
--- NOTE | 2017-10-16 10:04 | NUR ---
CYBER SECURITY INSTRUCTOR AT BEDSIDE FOR BLOOD DRAW.
--- NOTE | 2017-10-16 10:07 | NUR ---
AIRCRAFT ENGINE DISMANTLER AT BEDSIDE.
[2017-10-16 10:24] LABS: BASOPHILS % (AUTO) 0.7 % (0.0-2.0); EOSINOPHILS % (AUTO) 1.3 % (0.0-6.0); HEMATOCRIT 42 % (33-45); HEMOGLOBIN 14.2 g/dL (11.5-14.8); LYMPHOCYTES # (AUTO) 1.3 /CMM (0.8-4.8); LYMPHOCYTES % (AUTO) 27.5 % (20.0-44.0); MEAN CORPUSCULAR HGB CONC 34 g/dl (31.0-36.0); MEAN CORPUSCULAR VOLUME 93 fL (82-100); MONOCYTES # (AUTO) 0.3 /CMM (0.1-1.30); MONOCYTES % (AUTO) 5.8 % (2.0-12.0); NEUTROPHILS # (AUTO) 3.1 /CMM (1.8-8.9); NEUTROPHILS % (AUTO) 64.7 % (43.0-81.0); PLATELET COUNT (AUTO) 231 /CMM (150-450); RDW COEFFICIENT OF VARIATION 13.4 (11.5-15.0); RED BLOOD CELL COUNT(AUTO) 4.51 MIL/uL (4.0-5.2); WHITE BLOOD COUNT (AUTO) 4.8 K/uL (4.3-11.0)
[2017-10-16 10:31] LABS: CALCIUM, SERUM 9.1 mg/dL (8.5-10.1); CARBON DIOXIDE 29 mmol/L (21-32); CHLORIDE 103 mmol/L (98-107); CREATININE 0.9 mg/dL (0.6-1.3); GLUCOSE 101 mg/dL (74-106); POTASSIUM 3.3 mmol/L (3.5-5.1); SODIUM SERUM 138 mmol/L (136-145); UREA NITROGEN, BLOOD 14 mg/dL (7-18)
[2017-10-16 10:38] LABS: ALANINE AMINOTRANSFERASE 28 U/L (12-78); ALBUMIN 3.4 g/dL (3.4-5.0); ALKALINE PHOSPHATASE 56 U/L (46-116); ASPARTATE AMINOTRANSFERASE 15 U/L (15-37); BILIRUBIN,DIRECT 0.1 mg/dL (0.0-0.2); BILIRUBIN,TOTAL 0.7 mg/dL (0.2-1.0); TOTAL PROTEIN, SERUM 6.7 g/dL (6.4-8.2)
[2017-10-16 10:40] LABS: TROPONIN I < 0.017 ng/mL (0.00-0.056)
[2017-10-16] MEDS ORDERED: oxyCODONE/APAP (5/325 MG) 1 UDTAB TABLET ONE (11:44)
[2017-10-16] MEDS ORDERED: KETOROLAC TROMETHAMINE INJ 60 MG/2 ML VIAL IM ONE ×2 (11:44→12:00)
[2017-10-16] MEDS ORDERED: MORPHINE SULFATE INJ 2 MG/ML DISP.SYRIN IV ONE (12:00)
[2017-10-16] MEDS ORDERED: oxyCODONE/APAP (5/325 MG) 1 UDTAB TABLET PO ONE (12:00)
[2017-10-16 13:30] VITALS: BP 109/66
--- NOTE | 2017-10-16 13:32 | NUR ---
Patient discharged to home in stable condition. Written and verbal after care instructions given. Patient verbalizes understanding of instruction.
== END 2017-10-16 13:31 | disposition home or self-care (01) ==
LOC: ER 09:19
DX: M54.6 Pain in thoracic spine (principal); G89.29 Other chronic pain; M79.602 Pain in left arm; M54.5 Low back pain; I10 Essential (primary) hypertension; F32.9 Major depressive disorder, single episode, unspecified; Z85.3 Personal history of malignant neoplasm of breast; Z88.8 Allergy status to other drugs, medicaments and biological substances; Z90.710 Acquired absence of both cervix and uterus; Z90.49 Acquired absence of other specified parts of digestive tract; Z98.890 Other specified postprocedural states
CPT/HCPCS: 36415; 71045; 80048; 80076; 84484; 85025; 93005; 96372; 99285; A4606; J1885; Z7610